=== PATIENT | male | born 1960 | race Caucasian/White ===

== ENCOUNTER 2017-01-27 22:18 | Observation (INO) ==
[2017-01-27] MEDS ORDERED: Aspirin 81 MG TAB.CHEW PO ONE (23:58)
--- NOTE | 2017-01-28 00:03 | Emergency Department Note ---
Disposition Clinical Impression: HTN (hypertension) Qualifiers: Hypertension type: essential hypertension Qualified Code(s): I10 - Essential ( primary) hypertension Disposition: Admitted As Inpatient Condition: Fair Referrals: NO,PCP [Primary Care Provider] - Forms: ED Satisfaction Letter Time of Disposition: 01:54 General Adult HPI - General Chief complaint: ED Recheck/Abnormal Lab/Rx Stated complaint: HTN, headache Time Seen by Provider: 01/27/17 23:43 Source: patient Mode of arrival: ambulatory Limitations: no limitations Nursing Notes Reviewed: Yes Vital Signs Reviewed: Yes - History of Present Illness HPI Narrative: Patient is a 57-year-old male with a past medical history of hypertension, diabetes, prostate cancer and thyroid disease that presents the ED with chief complaint high blood pressure, head fullness, chest tightness and ringing of the ears. Patient states that symptoms started yesterday evening. States highest recorded blood pressure was 190's/90's at home. He denies any shortness of breath, chest pain (just states chest tightness) nausea, vomiting, diaphoresis, fever, neck stiffness/pain, dizziness, lightheadedness, change in vision or any other symptoms/complaints. Patient currently takes lisinopril 40 mg daily. Patient does report he has been under a lot of stress lately. approximately 3 months ago. Pt Subjective Complaint: High blood pressure, headache, chest tightness Onset (ago): day(s) Location: other (Headache, chest tightness) Radiation: non-radiation Pain Severity: moderate Pain Scale: 7 Quality: dull Consistency: constant Improves with: nothing Worsens with: nothing Associated symptoms: Reports: denies other symptoms, chest pain (NO pain, just Chest tightness), headaches. Denies: confusion, cough, diaphoresis, fever/ chills, loss of appetite, malaise, nausea/vomiting, rash, seizure, shortness of breath, syncope, weakness Treatments Prior to Arrival: none - Related Data Allergies Allergy/AdvReac Type Severity Reaction Status Date / Time No Known Allergies Allergy Verified 11/22/16 21:38 All systems ED: reviewed and negative except as stated. Constitutional: Denies: fever, chills, weakness Eyes: Denies: eye discharge ENT ED: Denies: ear pain Cardiovascular: Reports: chest pain (No pain, Chest tightness). Denies: palpitations, dyspnea on exertion, syncope, paroxysmal nocturnal dyspnea Respiratory: Denies: cough, dyspnea, wheezes, hemoptysis Gastrointestinal: Denies: abdominal pain, nausea, vomiting, diarrhea Genitourinary: Denies: urgency, dysuria, frequency Musculoskeletal: Denies: back pain, neck pain Integumentary: Denies: rash Neurological: Reports: headache. Denies: weakness, numbness, paresthesias Past Medical History - Past Medical History Medical history: Reports: cancer, diabetes, hyperlipidemia, hypertension, thyroid disease Psychiatric history: Reports: no psych history - Social History Smoking Status: Never smoker Smokeless Tobacco Status: No Alcohol use: Reports: none Drug use: Reports: none Physical Exam - General Limitations: no limitations General appearance: alert, in no apparent distress - Head Head exam: atraumatic, normocephalic, normal inspection - Eye Eye exam: Present: normal appearance, PERRL, EOMI. Absent: scleral icterus, conjunctival injection, nystagmus, miosis, mydriasis, periorbital swelling, periorbital tenderness - ENT ENT exam: normal exam, normal oropharynx, mucous membranes moist, TM's normal bilaterally - Neck Neck exam: Present: normal inspection, full ROM, trachea midline. Absent: tenderness, meningismus - Chest Chest inspection: Present: normal inspection, symmetric chest wall rise - Respiratory Respiratory exam: Present: normal lung sounds bilaterally - Cardiovascular Cardiovascular exam: Present: regular rate, normal rhythm, normal heart sounds - Abdominal Exam Abdominal exam: Present: soft, Non-Tender - Extremities Exam Extremities exam: Present: normal inspection, full ROM. Absent: tenderness, pedal edema - Expanded Lower Extremity Exam Gait: observed and normal - Back Exam Back exam: Present: normal inspection, full ROM. Absent: tenderness - Neurological Exam Neurological exam: Present: alert, oriented X3, CN II-XII intact - Psychiatric Psychiatric exam: Present: normal affect, normal mood - Skin Skin exam: Present: warm, dry, intact, normal color. Absent: rash, cyanosis, diaphoresis Course Course Narrative: Patient is a 57-year-old male with a past medical history of hypertension, diabetes, prostate cancer and thyroid disease that presents the ED with chief complaint high blood pressure, head fullness, chest tightness and ringing of the ears. Patient states that symptoms started yesterday evening. States highest recorded blood pressure was 190's/90's at home. He denies any shortness of breath, chest pain (just states chest tightness) nausea, vomiting, diaphoresis, fever, neck stiffness/pain, dizziness, lightheadedness, change in vision or any other symptoms/complaints. Patient currently takes lisinopril 40 mg daily. Patient does report he has been under a lot of stress lately. approximately 3 months ago. Patient is a very well/nontoxic appearing 57-year-old male. Vital stable. Afebrile. Alert and oriented 3. Appears in no acute distress. Head normocephalic. No signs of external trauma. Eyes normal inspection. PERRL. Extraocular movements intact. ENT within normal limits. Airway patent. Neck supple, full range of motion, nontender. No signs of meningeal irritation. Heart RRR. Lungs CTAB. Abdomen soft, nontender. Extremities within normal limits. Neuro no focal neurological deficits are noted on exam. Blood Pressure 189/87 upon arrival. Plan to obtain EKG and labs at this time. Will reevaluate. ASA given. EKG sinus bradycardia. Troponin 0.04 x-ray shows no acute cardiopulmonary abnormalities. Reevaluation blood pressure improved without any medication. 139/73. Patient states he no longer has a headache. Still does report some mild chest tightness but no chest pain. Again, patient is denying any chest pain. States just chest tightness Discussed lab, EKG and imaging with patient. Will admit to medicine at this time for serial troponin. Discussed case with Dr. Vallejo. She had [id number] time with patient and agrees with my assessment and plan. Discussed case with the hospitalist. He accepted patient. No other requests at this time. Vital Signs Temperature 98.0 F 01/27/17 22:19 Pulse Rate 59 01/27/17 22:19 Respiratory Rate 18 01/27/17 22:19 Blood Pressure 189/87 01/27/17 22:19 O2 Sat by Pulse Oximetry 96 01/27/17 22:19 Temperature 98.0 F 01/27/17 22:19 Pulse Rate 62 01/28/17 01:12 Respiratory Rate 18 01/28/17 01:12 Blood Pressure 139/73 01/28/17 01:12 O2 Sat by Pulse Oximetry 98 01/28/17 01:12 Oxygen Delivery Oxygen Delivery Room Air Medical Decision Making - Medical Records Medical records reviewed: Yes I reviewed the patient's medical records. - Lab Data Lab results reviewed: Yes I reviewed the patient's lab results. Result diagrams: 01/28/17 00:13 01/28/17 00:13 Lab Results 01/28/17 01/28/17 01/28/17 Range/Units 00:13 00:13 00:13 WBC 7.3 (4.3-11.1) K/mcL RBC 4.61 (4.19-5.50) M/mcL Hgb 12.4 L (12.9-16.9) g/dL Hct 37.6 (37.5-50.1) % MCV 81.6 L (83.0-100.0) fL MCH 26.9 L (28.0-33.3) pg MCHC 33.0 (31.6-35.5) g/dL RDW 15.2 H (11.5-14.5) % Plt Count 143 (140-400) K/mcL MPV 10.6 (9.4-12.4) fL Immature Gran % 0.5 (0-4) % Seg Neutrophils % 49.6 % Lymphocytes % 39.8 % Monocytes % 7.9 % Eosinophils % 1.8 % Basophils % 0.4 % Neutrophils # 3.6 (1.6-8.9) K/mcL Lymphocytes # 2.9 (0.6-4.6) K/mcL Monocytes # 0.6 (0.0-1.3) K/mcL Eosinophils # 0.1 (0.0-0.6) K/mcL Basophils # 0.0 (0.0-0.2) K/mcL Immature Plt Fraction 6.0 (1.1-6.1) % Sodium 138 (136-145) mEq/L Potassium 3.7 (3.5-4.5) mEq/L Chloride 103 (98-109) mEq/L Carbon Dioxide 26 (19-29) mEq/L BUN 8 (8-26) mg/dL Creatinine 0.98 (0.72-1.25) mg/dL Est GFR ( Amer) > 60 (> 60) Est GFR (Non-Af Amer) > 60 (> 60) BUN/Creatinine Ratio 8 (6-26) Glucose 138 H (70-99) mg/dL Calculated Osmolality 287 (280-300) Calcium 9.6 (8.6-10.8) mg/dL Troponin I 0.04 H* (0-0.03) ng/mL Urine Color (Yellow) Urine Clarity (Clear) Urine pH (5.0-8.0) pH Units Ur Specific Butler (1.010-1.025) Urine Protein (Neg-Trace) mg/dL Urine Glucose (UA) (Normal) mg/dL Urine Ketones (Negative) mg/dL Urine Blood (Negative) Urine Nitrite (Negative) Urine Bilirubin (Negative) Urine Urobilinogen (Normal) mg/dL Ur Leukocyte Esterase (Negative) Ur Culture Indicated? (NO) 01/28/17 Range/Units 01:05 WBC (4.3-11.1) K/mcL RBC (4.19-5.50) M/mcL Hgb (12.9-16.9) g/dL Hct (37.5-50.1) % MCV (83.0-100.0) fL MCH (28.0-33.3) pg MCHC (31.6-35.5) g/dL RDW (11.5-14.5) % Plt Count (140-400) K/mcL MPV (9.4-12.4) fL Immature Gran % (0-4) % Seg Neutrophils % % Lymphocytes % % Monocytes % % Eosinophils % % Basophils % % Neutrophils # (1.6-8.9) K/mcL Lymphocytes # (0.6-4.6) K/mcL Monocytes # (0.0-1.3) K/mcL Eosinophils # (0.0-0.6) K/mcL Basophils # (0.0-0.2) K/mcL Immature Plt Fraction (1.1-6.1) % Sodium (136-145) mEq/L Potassium (3.5-4.5) mEq/L Chloride (98-109) mEq/L Carbon Dioxide (19-29) mEq/L BUN (8-26) mg/dL Creatinine (0.72-1.25) mg/dL Est GFR ( Amer) (> 60) Est GFR (Non-Af Amer) (> 60) BUN/Creatinine Ratio (6-26) Glucose (70-99) mg/dL Calculated Osmolality (280-300) Calcium (8.6-10.8) mg/dL Troponin I (0-0.03) ng/mL Urine Color Yellow (Yellow) Urine Clarity Clear (Clear) Urine pH 5.5 (5.0-8.0) pH Units Ur Specific Butler 1.017 (1.010-1.025) Urine Protein Negative (Neg-Trace) mg/dL Urine Glucose (UA) Normal (Normal) mg/dL Urine Ketones Negative (Negative) mg/dL Urine Blood Negative (Negative) Urine Nitrite Negative (Negative) Urine Bilirubin Negative (Negative) Urine Urobilinogen Normal (Normal) mg/dL Ur Leukocyte Esterase Negative (Negative) Ur Culture Indicated? NO (NO) - Radiology Data Radiology results reviewed: Yes I reviewed the patient's radiology results.
[2017-01-28 00:32] LABS: Basophils % 0.4 %; Eosinophils # 0.1 K/mcL (0.0-0.6); Eosinophils % 1.8 %; Hematocrit 37.6 % (37.5-50.1); Hemoglobin 12.4 g/dL (12.9-16.9); Immature Granulocytes % 0.5 % (0-4); Lymphocytes # 2.9 K/mcL (0.6-4.6); Lymphocytes % 39.8 %; Mean Corpuscular Hemoglobin 26.9 pg (28.0-33.3); Mean Corpuscular Volume 81.6 fL (83.0-100.0); Mean Platelet Volume 10.6 fL (9.4-12.4); Monocytes # 0.6 K/mcL (0.0-1.3); Monocytes % 7.9 %; Neutrophils # 3.6 K/mcL (1.6-8.9); Platelet Count 143 K/mcL (140-400); Red Blood Count 4.61 M/mcL (4.19-5.50); Red Cell Distribution Width 15.2 % (11.5-14.5); Segmented Neutrophils % 49.6 %
[2017-01-28 01:00] LABS: BUN/Creatinine Ratio 8 (6-26); Blood Urea Nitrogen 8 mg/dL (8-26); Calcium 9.6 mg/dL (8.6-10.8); Carbon Dioxide 26 mEq/L (19-29); Chloride 103 mEq/L (98-109); Glucose 138 mg/dL (70-99); Osmolality,Calculated 287 (280-300); Potassium 3.7 mEq/L (3.5-4.5); Sodium 138 mEq/L (136-145); eGFR For African Americans > 60 (> 60); eGFR For Non-African Americans > 60 (> 60)
[2017-01-28 01:30] LABS: Bilirubin,Urine Negative (Negative); Blood,Urine Negative (Negative); Clarity,Urine Clear (Clear); Color,Urine Yellow (Yellow); Glucose,Urine (UA) Normal (Normal); Ketones,Urine Negative (Negative); Leukocyte Esterase,Urine Negative (Negative); Nitrite,Urine Negative (Negative); PH,Urine 5.5 pH Units (5.0-8.0); Protein,Urine Negative (Neg-Trace); Specific Gravity,Urine 1.017 (1.010-1.025); Urobilinogen,Urine Normal (Normal)
--- NOTE | 2017-01-28 04:39 | Internal Med History&Physical ---
Date of Encounter: 01/28/17 Time of Encounter: 04:39 Assessment and Plan (1) Accelerated hypertension Current visit: Yes Status: Acute Will continue his home dose of lisinopril and add amlodipine (Not suitable for betablocker, due to bradycardia - will check TSH to evaluate bradycardia). (2) Elevated troponin Current visit: Yes Status: Acute Likely secondary to accelerated hypertension. However need to exclude acute coronary syndrome and trend his troponins. (3) Chest pain Current visit: Yes Status: Acute Likely secondary to accelerated hypertension. Improved now Qualifiers: Chest pain type: unspecified Qualified Code(s): R07.9 - Chest pain, unspecified Internal Medicine - H&P: HPI Chief complaint: Elevated BP; chest pain Admitted From: Emergency Dept Plans for Post Hospital Care: Home History of present illness: Mr. Duvall is a 57 year old male with past medical history of hypertension, diabetes, prostate cancer s/p prostatectomy presented to the ER with h/o high blood pressure noted at home. He has history of hypertension and been on Lisinopril, but the blood pressure has been trending up. His SBP apparently has been in the 150s 170s. He denies any changes in medications (reports good compliance with medications); high sodium diet, excess caffeine, CORBIN. He reports 6/10 chest pressure, which was nonradiating and dull headache associated with elevated blood pressure today. His chest pressure improved after his BP improved in the ER. He denies blurry vision, nausea, vomiting, abdominal pain, dysuria, hematuria or bowel problems. He was evaluated in the emergency department and troponin was 0.04. He is admitted to the hospitalist service for further workup and management. Past Med Surg Social Fam HX - Past Medical History Medical history: cancer, diabetes, hyperlipidemia, hypertension, thyroid disease Psychiatric history: no psych history - Social History Smoking Status: Never smoker Smokeless Tobacco Status: No Alcohol use: none Drug use: none - Family History Father Hx Family Cardiac Disorders: Yes (CVA, HTN) Hx Family Respiratory Disorders: No Hx Family Cancer: Yes (Prostate) Hx Family GI Disorders: No Hx Family Genitourinary Disorders: No Hx Family Endocrine Disorder: No Hx Family Musculoskeletal Disorders: No Hx Family Neuromuscular Disorders: No Hx Family Neurologic Disorders: No Hx Family HEENT Disorders: No Hx Family Autoimmune Disorders: No Hx Family Reproductive Disorders: No Hx Family Psychosocial Disorders: No Hx Family Medical Disorders: No Mother Hx Family Cardiac Disorders: Yes (CVA, HTN) Hx Family Respiratory Disorders: No Hx Family Cancer: No Hx Family GI Disorders: No Hx Family Genitourinary Disorders: No Hx Family Endocrine Disorder: Yes (Thyroid disease) Hx Family Musculoskeletal Disorders: No Hx Family Neuromuscular Disorders: No Hx Family Neurologic Disorders: No Hx Family HEENT Disorders: No Hx Family Autoimmune Disorders: No Hx Family Reproductive Disorders: No Hx Family Psychosocial Disorders: No Hx Family Medical Disorders: No Internal Medicine - H&P: Meds Allergies No Known Allergies Allergy (Verified 11/22/16 21:38) All Systems PM: A 10-system review of systems was performed and is negative for pertinent findings except as documented above in the HPI. - Constitutional Vitals: Temp Pulse Resp BP Pulse Ox 97.8 F 51 12 176/95 96 01/28/17 03:03 01/28/17 03:03 01/28/17 03:03 01/28/17 03:03 01/28/17 03:03 Exam: General: Not in acute distress at the time of my evaluation HEENT: Oral mucosa is moist. No conjunctival palor or scleral icterus Neck: No obvious neck swellings Lungs: Clear to auscultation Cardiac: Regular rate and rhythm. No significant murmurs Abdomen: Soft, non tender. Bowel sounds present Genitourinary: No barnes catheter Neurological: Alert and oriented. No gross localizing deficits Psych: Not aggressive or agitated Extremities: no significant leg edema Skin: No generalized rash Internal Med - H&P Results - Labs CBC & Chem 7: 01/28/17 00:13 01/28/17 05:07 - EKG Data -: EKG Interpreted by Myself EKG shows normal: sinus rhythm Rate: bradycardia - EKG Data EKG comments: Heart rate 53 01/28/17 06:04 - Impressions ITS Impressions Chest X-Ray 01/28/17 00:10 IMPRESSION: No acute process. D/ / Ambrocio Craft MD / Ambrocio Craft MD Interpreting Provider: Ambrocio Craft MD
[2017-01-28] MEDS ORDERED: Naloxone 0.4 MG/ML INJ IVP PRN (04:40)
[2017-01-28] MEDS ORDERED: Nitroglycerin 0.4 MG TAB.SUBL SL PRN (04:42)
[2017-01-28] MEDS ORDERED: *HR* Labetalol 20 MG/4 ML SYRINGE IVP PRN (04:44)
[2017-01-28 05:32] LABS: Alanine Aminotransferase 32 Units/L (0-55); Albumin 3.5 g/dL (3.5-5.0); Albumin/Globulin Ratio 1.1 (1.1-2.2); Alkaline Phosphatase 62 Units/L (38-126); Aspartate Amino Transferase 23 Units/L (5-34); BUN/Creatinine Ratio 10 (6-26); Bilirubin,Total 0.7 mg/dL (0.2-1.2); Blood Urea Nitrogen 9 mg/dL (8-26); Calcium 9.4 mg/dL (8.6-10.8); Carbon Dioxide 27 mEq/L (19-29); Chloride 104 mEq/L (98-109); Globulin 3.2 g/dL (2.4-3.5); Glucose 111 mg/dL (70-99); Osmolality,Calculated 287 (280-300); Potassium 3.9 mEq/L (3.5-4.5); Sodium 139 mEq/L (136-145); Total Protein 6.7 g/dL (6.0-8.3); eGFR For African Americans > 60 (> 60); eGFR For Non-African Americans > 60 (> 60)
[2017-01-28 06:24] LABS: Chol/HDL Ratio 6.5 (0-4.9); Cholesterol 168 mg/dL (< 200); HDL Cholesterol 26 mg/dL (40-59); LDL Cholesterol,Calculated 110 mg/dL (0-99); Triglycerides 158 mg/dL (< 150)
[2017-01-28] MEDS: amLODIPine 5 MG TABLET PO SCH (06:27)
[2017-01-28 06:44] LABS: Thyroid Stimulating Hormone 4.804 mcIU/mL (0.350-4.840)
--- NOTE | 2017-01-28 12:34 | Cardiology Consult Note ---
Date of Encounter: 01/28/17 Time of Encounter: 12:29 Assessment and Plan (1) Bradycardia Current Visit: Yes Status: Acute Asymptomatic bradycardia. HR noted to be in the 30's by nursing staff. 24 hour telemetry review shows avg HR 55 bpm. Minimum HR 40 bpm at 0720 am. Apical pulse auscultated while patient sitting on side of bed was 44 bpm. EKG- sinus bradycardia, HR 52 bpm. Moderate intraventricular conduction delay. TTE shows EF 60%, mild diastolic dysfunction, no significant valvular disease. TSH normal. He denies symptoms. Avoid av miri blockers. Recommend nuclear exercise stress test to assess for impaired chronotropic response and further evaluate chest pain. (2) Chest pain Current Visit: Yes Status: Acute Intermittent chest pain increasing with exertion in the setting of uncontrolled HTN. Mild troponin at 0.04, 0.01 non-diagnostic for ACS. TTE shows normal EF, no significant valvular disease. Recommend nuclear exercise stress test in am. Cardiac risk factors include DM type II and HLD. Qualifiers: Chest pain type: unspecified Qualified Code(s): R07.9 - Chest pain, unspecified Discussion w patient/family: The assessment and plan as outlined above was discussed with the patient and/or family members who expressed understanding and agreement. All questions were answered. Thank you for involving us in the care of your patient. Please call with any questions. History of Present Illness Consult date: 01/28/17 Requesting physician: Suly Holt Consult reason: Bradycardia Chief complaint: Elevated blood pressure, chest pressure, headache History of present illness: Mr. Duvall is a 57 year old male with a past medical history significant for DM type II, HTN, thyroid disease, and prostate cancer s/p prostatectomy who presented with c/o elevated blood pressure, chest pressure, and headache over the past three days. He reports blood pressure up to mid 170 systolic at home. Initial work-up revealed b/p 189/86. Troponin 0.04, 0.01, His chest pain was relieved after he took 4 baby asa and norvasc. He is currently pain free. Cardiology consulted for bradycardia with HR in the 40's. RN reported HR in the 30's. He denies dizziness or syncope. C/o fatigue. Past Med Surg Social Fam HX - Past Medical History Attestation: Yes The following information was validated with the patient. Medical history: cancer, diabetes, hyperlipidemia, hypertension, thyroid disease Psychiatric history: no psych history - Social History Smoking Status: Never smoker Smokeless Tobacco Status: No Alcohol use: none Drug use: none - Family History Father Hx Family Cardiac Disorders: Yes (CVA, HTN) Hx Family Respiratory Disorders: No Hx Family Cancer: Yes (Prostate) Hx Family GI Disorders: No Hx Family Genitourinary Disorders: No Hx Family Endocrine Disorder: No Hx Family Musculoskeletal Disorders: No Hx Family Neuromuscular Disorders: No Hx Family Neurologic Disorders: No Hx Family HEENT Disorders: No Hx Family Autoimmune Disorders: No Hx Family Reproductive Disorders: No Hx Family Psychosocial Disorders: No Hx Family Medical Disorders: No Mother Hx Family Cardiac Disorders: Yes (CVA, HTN) Hx Family Respiratory Disorders: No Hx Family Cancer: No Hx Family GI Disorders: No Hx Family Genitourinary Disorders: No Hx Family Endocrine Disorder: Yes (Thyroid disease) Hx Family Musculoskeletal Disorders: No Hx Family Neuromuscular Disorders: No Hx Family Neurologic Disorders: No Hx Family HEENT Disorders: No Hx Family Autoimmune Disorders: No Hx Family Reproductive Disorders: No Hx Family Psychosocial Disorders: No Hx Family Medical Disorders: No Medications and Allergies Aspirin 81 mg PO DAILY 01/28/17 [History] Insulin Glargine [Lantus] 14 units SQ HS 01/28/17 [History] Levothyroxine [Synthroid] 100 mcg PO 0630 01/28/17 [History] Lisinopril [Zestril] 40 mg PO DAILY 01/28/17 [History] Omeprazole 40 mg PO DAILY 01/28/17 [History] RX: Docusate [Colace] 100 mg PO BID 01/28/17 [History] Allergies No Known Allergies Allergy (Verified 11/22/16 21:38) All Systems Review: A 10-system review of systems was performed and is negative for pertinent findings except as documented above in the HPI. Physical Examination Vital Signs Temp Pulse Resp BP Pulse Ox 01/28/17 07:31 97.9 F 52 14 153/75 97 01/28/17 03:03 97.8 F 51 12 176/95 96 01/28/17 02:30 98.1 F 16 136/72 01/28/17 01:12 62 18 139/73 98 01/27/17 22:19 98.0 F 59 18 189/87 96 Intake and Output 01/27/17 01/28/17 01/28/17 23:59 07:59 15:59 Other: Weight 108.862 kg 115.711 kg Blood Glucose* 133 Patient Weight 01/28/17 23:59 Weight 115.711 kg General: Conversant, No Apparent Distress HEENT: Atraumatic, Normocephaly, Mucus Membranes Moist Neck: No JVD, Normal carotid pulses Cardiac: Reg Rate and Rhythm, Normal S1 and S2, No Murmur Lungs: Normal Breath Sounds, No Wheeze, Rales, Rhonchi Neuro: Alert and responsive, No focal deficits noted Abdomen: Soft, Non-Tender Skin: No rashes noted on visualized skin Musculoskeletal: No Chest Wall Tenderness Extremities: No Clubbing, No Cyanosis, No Edema, Normal Pulses Results 01/28/17 00:13 01/28/17 05:07 Lab Results 01/28/17 01/28/17 01/28/17 05:07 05:07 11:40 Sodium 139 Potassium 3.9 Chloride 104 Carbon Dioxide 27 BUN 9 Creatinine 0.94 Glucose 111 H Calcium 9.4 Magnesium 2.0 Total Bilirubin 0.7 AST 23 ALT 32 Alkaline Phosphatase 62 Troponin I 0.01 0.01 TSH 4.804 - Imaging and Cardiology Echo: report reviewed - EKG Interpretation EKG results cardiology: other (24 hour telemetry review comleted.) Consult Discharge Plan - Plan Referrals: NO,PCP [Primary Care Provider] -
--- NOTE | 2017-01-28 16:25 | Electrocardiograph Report ---
[place] [id number] Test Date: 2017-01-27 Pat Name: Nitesh Duvall Department: 103 Room: 3B34 Gender: M Equine Breeder: JOSE ALFREDO : 1960 Requested By: Yesi See Order Number: [id number] Reading MD: Radha Rangel Measurements Intervals [place] Rate: 53 P: 40 IN: 139 QRS: -21 QRSD: 107 T: 13 QT: 410 QTc: 394 Interpretive Statements SINUS BRADYCARDIA BORDERLINE LEFT AXIS DEVIATION Electronically Signed On 01-28-2017 16:23:34 EDT by Radha Rangel
[2017-01-28] MEDS ORDERED: *HR* Dextrose 50 % in Water (Syg) 50 ML SYRINGE IVP PRN (18:35)
[2017-01-28] MEDS ORDERED: Dextrose Gel 15 GM PO PRN ×2 (18:35)
[2017-01-28] MEDS ORDERED: D5% in Water 1,000 ML IVC PRN (18:35)
[2017-01-28] MEDS ORDERED: *HR* HYDROcodone/Acet 5/325 mg TABLET PO PRN (18:37)
[2017-01-28] MEDS ORDERED: *HR* Morphine 2 MG/ML SYRINGE IVP PRN (18:37)
[2017-01-28] MEDS ORDERED: Acetaminophen 325 MG TABLET PO PRN (18:37)
--- NOTE | 2017-01-28 18:38 | Event Note ---
Date of Encounter: 01/28/17 Time of Encounter: 17:00 Patient seen and examined. On examination, patient sitting upright in his bed. Patient stating he continues to experience intermittent bouts of chest pressure. He denies overt pain or shortness of breath. Chest x-ray negative. Hypertension noted and amlodipine was added to his regimen. His home medications have been confirmed and continued. Blood pressure more controlled at this time. We will continue to trend. Cardiology brought on board as the patient's heart rate has been in the 40s most of the day. He is not on any beta blockers. Initial mild troponin elevation of 0.04, suspect demand ischemia secondary to accelerated hypertension, repeat troponin negative. Cardiology has recommended a stress test which is scheduled for tomorrow morning. Echocardiogram unremarkable with ejection fraction of 60% and mild diastolic dysfunction. Patient is euvolemic on examination and denies shortness of breath. TSH is normal. His bradycardia appears asymptomatic, but will rule out impaired chronotropic response with stress test tomorrow. ITS Impressions Chest X-Ray 01/28/17 00:10 IMPRESSION: No acute process. D/ / Ambrocio Craft MD / Ambrocio Crfat MD Interpreting Provider: Ambrocio Craft MD Echocardiogram impressions: LVEF 60%. Not all myocardial segments were well visualized. Normal left ventricular size and systolic function. There is evidence of mild diastolic dysfunction of the left ventricle. Normal right ventricular size and function. No significant valvular dysfunction. No pulmonary hypertension.
[2017-01-28] MEDS: Lisinopril 20 MG TABLET PO SCH (20:21)
[2017-01-28] MEDS ORDERED: Insulin LISPRO 300 UNITS/3 ML VIAL SQ SCH (21:00)
[2017-01-28] MEDS ORDERED: Insulin DETEMIR 100 UNIT/ML X5UNITS SQ SCH (21:00)
[2017-01-29 06:36] LABS: Hemoglobin A1C 7.5 %
[2017-01-29] MEDS ORDERED: Aspirin 81 MG TAB.CHEW PO SCH (09:00)
[2017-01-29] MEDS: amLODIPine 5 MG TABLET PO SCH (09:19)
[2017-01-29] MEDS: Lisinopril 20 MG TABLET PO SCH (09:19)
[2017-01-29] MEDS: Insulin LISPRO 300 UNITS/3 ML VIAL SQ SCH ×3 (09:24→15:57)
--- NOTE | 2017-01-29 11:58 | Cardiology Progress Note ---
Date of Encounter: 01/29/17 Time of Encounter: 11:53 Assessment and Plan (1) Bradycardia Current Visit: Yes Status: Acute Bradycardia. HR noted to be in the 30's by nursing staff. 24 hour telemetry review shows avg HR 52 bpm. Minimum HR 41 bpm at 0417 am. Apical pulse auscultated while patient sitting on side of bed was 44 bpm. EKG- sinus bradycardia, HR 52 bpm. Moderate intraventricular conduction delay. TTE shows EF 60%, mild diastolic dysfunction, no significant valvular disease. TSH normal. Stress test attempted today. Unable to achieve target HR. Exercised for 6 min and 30 seconds. HR as high as 100 bpm. Stress test stopped d/t dyspnea and chest tightness. Possible activity intolerance d/t bradycardia. Avoid AV miri blockers. Patient would like to follow with a wrapper counter at [place] where his PCP and oncologist are located for further evaluation. No indication for inpatient transfer. Cardiology will sign off. Call with questions. (2) Chest pain Current Visit: Yes Status: Acute Intermittent chest pain increasing with exertion in the setting of uncontrolled HTN. Mild troponin at 0.04, 0.01 non-diagnostic for ACS. TTE shows normal EF, no significant valvular disease. Unable to complete nuclear exercise stress test d/t exertional chest pain. No changes on EKG with HR achieved. Declines lexiscan. Cardiac risk factors include DM type II and HLD. [facility] indication, risks, benefits, and alternatives reviewed with patient. He declines [facility] and would like to follow with his 's wrapper counter at [facility]. Recommend discharging on asa 81 mg daily and prn SL NTG for chest pain. Cardiology will sign off. Call with questions. Qualifiers: Chest pain type: unspecified Qualified Code(s): R07.9 - Chest pain, unspecified Discussion w patient/family: The assessment and plan as outlined above was discussed with the patient and/or family members who expressed understanding and agreement. All questions were answered. Thank you for involving us in the care of your patient. Please call with any questions. Subjective Principal diagnosis: bradycardia Objective Vital Signs, Last 4 Hours Temp Pulse Resp BP Pulse Ox 01/29/17 10:41 98.2 F 61 17 131/69 96 01/29/17 09:18 98.1 F 58 20 172/91 97 General: Conversant, No Apparent Distress HEENT: Atraumatic, Normocephaly, Mucus Membranes Moist Neck: No JVD, Normal carotid pulses Cardiac: Reg Rate and Rhythm, Normal S1 and S2, No Murmur Lungs: Normal Breath Sounds, No Wheeze, Rales, Rhonchi Neuro: Alert and responsive, No focal deficits noted Abdomen: Soft, Non-Tender Skin: No rashes noted on visualized skin Musculoskeletal: No Chest Wall Tenderness Extremities: No Clubbing, No Cyanosis, No Edema, Normal Pulses Results 01/28/17 00:13 01/28/17 05:07 Lab Results 01/28/17 11:40 Troponin I 0.01 - EKG Interpretation EKG results cardiology: personally reviewed Consult Discharge Plan - Plan Referrals: NO,PCP [Primary Care Provider] -
[2017-01-29] MEDS ORDERED: Nitroglycerin 0.4 MG TAB.SUBL SL PRN (12:03)
--- NOTE | 2017-01-29 13:36 | Nuclear Medicine Stress Report ---
Exercise Stress Name: Nitesh Duvall Date of Study: 01/29/2017 Date: 1960 Ht: 70.0 in Medical Record#: [id number] Age: 57 Wt: 248.0 lb Gender: Male Order #: [id number] Location: [facility] IP Room: [facility] Supervising Provider: Abbey Trujillo CNP Ordering Physician: Mainor Gillis CNP Primary Care Physician: None Stress Technologist: Nadya Howard, PRINTER MACHINE, CPFT Acetylene Torch Operator: Jorge Sheehan Indications: Chest Pain Impression: Study originally ordered as a pharmacological nuclear stress test, but patient refused Lexiscan injection. The study was converted to exercise, but he was unable to achieve 85% of predicted HR with exercise, so injection of isotope not performed. Rest imaging demonstrates mild to moderate intensity defects involving the basal to mid inferolateral and apical inferior segments. Without stress imaging and wall motion analysis, it is unclear if these defects are due to artifact or infarct. Stress ECG is non-diagnostic for ischemia due to failure to reach target heart rate (67%). The patient initially demonstrated an appropriate increase in BP (176/78), but BP then decreased at peak exercise (162/50). Chest discomfort reported during exercise. History: Hypertension Diabetes Stress Test Summary: Stress Test Type: Treadmill Protocol: Shayan Baseline Information: Initial Heart Rate: 59 Blood Pressure: 140/78 Stress Information: Stress Time: 6 min 50 sec Test Terminated Due to (primary): Dyspnea Fatigue Maximum Blood Pressure: 176/78 Maximum Heart Rate: 108 Percent Maximum Heart Rate Achieved: 67 Double Product: [id number] METS Reached: 7 Symptoms: Chest pain, Shortness of breath, Fatigue Nuclear Summary: SPECT myocardial perfusion imaging using Tc99m Sestamibi given intravenously was performed at rest and following cardiac stress testing. The resting images were obtained following initial dose of 11.7 mCi. Medication Given: Time Medication Dose Units Route Findings: Inferior Perfusion Rest The inferolateral segments show a mild to moderate reduction in perfusion. The apical inferior segment shows a moderate reduction in perfusion. Stress Note Normal sinus rhythm at rest. No baseline arrhythmias were noted. Stress ECG is non-diagnostic for ischemia due to failure to reach target heart rate (67%). Rare PVCs noted during exercise. The patient initially demonstrates an appropriate increase in BP, but BP then decreased at peak exercise. The exercise capacity was fair. Chest discomfort reported during exercise Updated by Mickey Archer DO, YONNY, ROGELIO, KANE on 01/29/2017 1:26:32 PM electronically signed on 01/29/2017 1:30:24 PM with status of Final
[2017-01-29 15:07] VITALS: BP 158/84
--- NOTE | 2017-01-29 15:56 | Discharge Summary ---
Date of Encounter: 01/29/17 Time of Encounter: 09:50 - Discharge Diagnosis (1) Bradycardia Priority: Secondary Status: Acute Comments: Nursing staff reports that patient's heart rate has been in the 30s. Per cardiology, 24-hour telemetry shows heart rate in the 50s, with a minimum of 41. Apical pulse is found to be bradycardic and rate was 44. Patient had TTE that showed EF of 60%, mild diastolic dysfunction, no significant parametrial disease. TSH was normal. Patient physical stress test today that was attempted , he was unable to achieve a target heart rate after 6 minutes and 30 seconds, he got as high as 109. Patient had dyspnea and chest tightness and stress test was stopped. He said that he was too afraid to do the chemical stress test. Initially, cardiology said that they were going to catheter him today. Patient declined and said that he would like to follow-up with a energy director at [place] since his primary care physician and all of his 's doctors are there. We have put in referral for cardiology appointment. They will contact him within 48-72 hours for an appointment. Patient is aware and agrees. Patient reports almost constant chest pressure since Saturday that he correlated with his hypertension. He says currently it is a 1-2/10. He denies any shortness of breath, nausea, diaphoresis, or radiation. He does not complain of dizziness with the bradycardia. He appears to be asymptomatic. (2) HTN (hypertension) Priority: Secondary Status: Chronic Comments: Patient is slightly above goal for age with his 40 mg of lisinopril. I will continue Norvasc 5 mg by mouth daily for home. Patient will need to follow up with primary care physician for hospital follow-up visit and medication adjustments. Qualifiers: Hypertension type: essential hypertension Qualified Code(s): I10 - Essential (primary) hypertension (3) Elevated troponin Priority: Secondary Status: Resolved Comments: Initial troponin was mildly elevated at 0.04. Has returned to 0.01 for the next 2 readings. (4) Chest pain Priority: Secondary Status: Acute Comments: Plan as above. Qualifiers: Chest pain type: unspecified Qualified Code(s): R07.9 - Chest pain, unspecified - Discharge Medications Prescriptions: amLODIPine [Norvasc] 5 mg PO DAILY #30 tablet Home Medications: Insulin Glargine [Lantus] 10 units SQ HS 01/28/17 [History] Levothyroxine [Synthroid] 100 mcg PO 0630 01/28/17 [History] Lisinopril [Zestril] 40 mg PO DAILY 01/28/17 [History] Aspirin 81 mg PO DAILY tab.chew 01/29/17 [Rx] Aspirin [Lo-Dose Aspirin EC] 81 mg PO DAILY 01/29/17 [History] Insulin LISPRO [Humalog Kwikpen U-100] 10 units SQ TID 01/29/17 [History] amLODIPine [Norvasc] 5 mg PO DAILY #30 tablet 01/29/17 [Rx] metFORMIN [Glucophage] 500 mg PO BIDWM 01/29/17 [History] Allergies/Adverse Reactions: Allergies atorvastatin Adverse Reaction (Verified 01/29/17 10:57) Cramping of the Muscles Procedures/tests Complete & Pending: Procedures Performed prior 72 hours Category Date Time Status NM demarcus perf SPECT single [NM] Routine Exams 01/29/17 00:01 Taken EKG [ECG 12 lead ECG] [ECG] Routine Y 01/28/17 12:22 Completed EV echocardiogram Routine Y 01/28/17 06:09 Completed SP exercise stress ECG Routine Y 01/29/17 08:00 Completed Date of admission: 01/28/17 02:01 Primary care physician: PCP NO Consults: 01/28/17 11:14 Consult to Cardiology [CONS] Routine Comment: Consulting Provider: Cardiology Trisha Reason for Consult: bradycardia Time Notified: 11:14 Call Completed: Yes Discharging clinician: Myrtle Peck Anticipated date of discharge: 01/29/17 - Patient Status Disposition: Home, Self-Care Condition: Good Functional capacity at discharge: independent ambulation Overall status at discharge: patient is progressing back to baseline - Discharge Instructions Follow Up With: NO,PCP [Primary Care Provider] - Additional Instructions: [facility] [facility] cardiology will call you with an appointment in the next 48-72 hours. Start your new BP medication tomorrow. I have called it into [facility] for you Please return to the ER if your condition changes or worsens or if you have any other problems or concerns. - Diet and Activity Activity: increase activity as tolerated Diet: advance to your usual diet Hospital course: Mr. Duvall is a 57 year old male with history of diabetes, hypertension, prostate cancer status post prostatectomy. He presented to the emergency room for chest pressure and hypertension at home. Patient has been on lisinopril, with increasing hypertension. Systolic is been in the 150s and 170s. He says he takes this medication every day and denies any recent changes in his medication. He reports 6/10 chest pressure that was nonradiating and dull in the center of his chest. He associates this with his blood pressure. He denies any vision changes, nausea, vomiting, no abdominal pain, abdominal pain. Initial troponin in the emergency department was 0.04, however, it has returned to normal. He had chest pressure that continued throughout his stress madhu. He was unable to complete the stress test due to shortness of breath, he tells me he was too afraid to do the chemical stress test.. After 6 and half minutes his heart rate was only 109. His chest pain and shortness of breath increased during the stress test. He has been bradycardic with heart rate as low as the 40s. He appears to be asymptomatic with that. He had an echocardiogram yesterday with an LVEF of 60%, normal systolic function, mild diastolic dysfunction no significant valvular dysfunction and no pulmonary hypertension. He was seen by cardiology and the heart catheter was indicated and recommended. Patient states that he does not want to have a heart catheter done and would like to go to [place] were his 's doctors are and he is familiar. We have put in a referral for [facility]. They will call him with an appointment in 48-72 hours. Patient is aware and agrees. He is appropriate and stable for discharge. - Time Spent with Patient Total time spent providing and/or coordinating discharge services: Less than 30 minutes - Constitutional Vitals: Temp Pulse Resp BP Pulse Ox 98.0 F 63 16 158/84 97 01/29/17 15:06 01/29/17 15:06 01/29/17 15:06 01/29/17 15:06 01/29/17 15:06 General appearance: Present: A&O X 3, pleasant, no acute distress, answers questions appropriately - Head Head exam: Present: normal inspection - Eye Eye exam: Present: normal appearance, conjuntiva pink - ENT ENT exam: Present: mucous membranes moist, normal exam - Neck Neck exam general surgery: Absent: lymphadenopathy, tenderness - Respiratory Respiratory exam: Present: CTAB. Absent: rales, rhonchi, stridor, wheezes - Cardiovascular Cardiovascular exam: Present: bradycardia, RRR, +S1, +S2. Absent: diastolic murmur, systolic murmur, tachycardia - GI/Abdominal GI/Abdominal exam: Present: normal bowel sounds. Absent: hepatomegaly, soft, tenderness - Extremities Exam Extremities exam: Present: full ROM, normal capillary refill, warm, radial pulses palpable and symetrical. Absent: pedal edema, tenderness - Neurological Exam Neurological exam: Present: alert, oriented X3, no focal deficits, strengths equal and symetr throughout. Absent: motor sensory deficit, facial droop, speech deficit
--- NOTE | 2017-01-29 23:43 | Electrocardiograph Report ---
[address] [address] Test Date: 2017-01-28 Pat Name: Nitesh Duvall Department: 113 Room: 3B34 Gender: M Fashion Consultant: : 1960 Requested By: Mainor Gillis Order Number: [id number] Reading MD: Ashlee Oseguera Measurements Intervals [place] Rate: 52 P: 43 AR: 145 QRS: -25 QRSD: 113 T: -4 QT: 422 QTc: 401 Interpretive Statements SINUS BRADYCARDIA BORDERLINE LEFT AXIS DEVIATION MODERATE INTRAVENTRICULAR CONDUCTION DELAY Electronically Signed On 01-29-2017 23:42:00 EDT by Ashlee Oseguera
== END 2017-01-29 16:40 | disposition home or self-care (01) ==
LOC: EMEROO 22:18 → 3BNU 22:18
PROVIDERS: ADMIT Internal Medicine; ATTEND Nurse Practitioner Family